=== PATIENT | female | born 2000 | race Caucasian/White ===

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

== ENCOUNTER 2018-07-03 07:09 | Emergency (ER) | payer OTHER ==
--- NOTE | 2018-07-03 07:38 | ED ---
Neck Pain - HPI Summary HPI Summary: This patient is a 17 year old F presenting to [facility] with a chief complaint of neck stiffness since the middle of the day yesterday. The patient rates the pain 5/10 in severity. Patient reports diffuse chest muscle pain, nausea, dry cough, sore throat, diaphoresis, fever, and headaches behind eyes. Patient denies being round anyone sick, ear aches, and abdominal pain. Her shots are up to date and her LNMP was 3-4 weeks ago. Patient has PMHx of chronic tachycardia , for which she takes 10 mg propranolol. She did not take any medications this morning and has not been out in the hatch recently. - History of Current Complaint Chief Complaint: EDGeneral Stated Complaint: GENERAL ILLNESS Time Seen by Provider: 07/03/18 07:31 Hx Obtained From: Patient Onset/Duration Of Injury/Symptoms: Days - Middle of the day yesterday Timing: Constant Onset/Duration: Sudden Onset Severity Initially: Moderate Severity Currently: Moderate Pain Intensity: 5 Pain Scale Used: 0-10 Numeric Location: Discrete At: - Sides of neck Character: Other: - Stiffness Associated Signs & Symptoms: Positive: Fever, Headache - around eyes - Allergies/Home Medications Allergies/Adverse Reactions: Allergies Allergy/AdvReac Type Severity Reaction Status Date / Time Penicillins Allergy Hives Verified 07/03/18 07:19 Home Medications: Home Medications Propranolol TAB* [Inderal TAB*] 10 mg PO DAILY 07/03/18 [History Confirmed 07/03] PMH/Surg Hx/FS Hx/Imm Hx Endocrine/Hematology History: Denies: Hx Diabetes Cardiovascular History: Denies: Hx Hypertension - Immunization History Date of Tetanus Vaccine: 2013 Date of Influenza Vaccine: 07/2017 Infectious Disease History: No Infectious Disease History: Denies: Traveled Outside the [place] in Last 30 Days - Family History Known Family History: Negative: Hypertension - Social History Occupation: Student Lives: Dormitory/Roommates Alcohol Use: Occasionally Hx Substance Use: No Substance Use Type: Reports: None Hx Tobacco Use: Yes Smoking Status (MU): Former Smoker Review of Systems Positive: Fever, Skin Diaphoresis Positive: Sore Throat, Other - Neck soreness. Negative: Ear Ache Positive: Chest Pain - Diffuse chest muscle pain Positive: Cough - Dry cough Positive: Nausea. Negative: Abdominal Pain Positive: Headache - Around eyes All Other Systems Reviewed And Are Negative: Yes Physical Exam - Summary Physical Exam Summary: GENERAL: Patient is a well-developed and nourished F who is lying comfortable in the stretcher. Patient is not in any acute respiratory distress. HEAD AND FACE: Normocephalic EYES: PERRLA, EOMI x 2. EARS: Hearing grossly intact. MOUTH: Oropharynx within normal limits. NECK: Supple, trachea is midline, no adenopathy, no JVD, no carotid bruit. CHEST: Symmetric, no tenderness at palpation LUNGS: Clear to auscultation bilaterally. No wheezing or crackles. CVS: Regular rate and rhythm, S1 and S2 present, no murmurs or gallops appreciated. ABDOMEN: Soft, non-tender. Bowel sounds are normal. No abdominal abnormal pulsations. EXTREMITIES: Full ROM in all major joints, no edema, no cyanosis or clubbing. NEURO: Alert and oriented x 3. No acute neurological deficits. Speech is normal and follows commands. SKIN: Dry and warm Triage Information Reviewed: Yes Vital Signs On Initial Exam: Initial Vitals Temp Pulse Resp BP Pulse Ox 100.9 F 110 19 112/77 100 07/03/18 07:14 07/03/18 07:14 07/03/18 07:14 07/03/18 07:14 07/03/18 07:14 Vital Signs Reviewed: Yes Procedures - Lumbar Puncture 11:00 Position: Sitting Aseptic Technique: Local Anesthesia Anesthesia Used: 2.0% Lido Spinal Needle Used: 20 Gauge Lumbar Puncture Note: %2.0 Lidocaine with epi Diagnostics - Vital Signs Vital Signs Temp Pulse Resp BP Pulse Ox 07/03/18 07:14 100.9 F 110 19 112/77 100 - Laboratory Result Diagrams: 07/03/18 08:05 07/03/18 08:04 Lab Statement: Any lab studies that have been ordered have been reviewed, and results considered in the medical decision making process. - Radiology Chest X-Ray Radiology Interpretation Completed By: Radiologist - :18. No active cardiopulmonary disease is noted. ED Physician has reviewed this imaging report. Re-Evaluation - Re-Evaluation 1 Re-Evaluation Time: 10:10 Comment: Informed the patient of the test results. Patient agrees to an LP. 2 Re-Evaluation Time: 13:07 Comment: After her LP, I instructed her to stay laying down. However, I just discovered that she got up before we instructed her to. Patient claims it had been 1 hour. Neck Course/Dx - Course Assessment/Plan: This patient is a 17 year old F presenting to [facility] with a chief complaint of neck stiffness since the middle of the day yesterday. Workup was unremarkable including the flu screen and rapid strep. Chest X-Ray showed no PNA, UA showed no UTI. No source for fever and she's having PLUMMER and neck pain. Therefore an LP was obtained. Patient was told to stay laying down for 2 hours after the LP. However, she got up after 1 hour AMA. CSF analysis showed no evidence of meningitis based off of cell count. Results discussed with patient who is much improved. Patient was eating a sandiwch brought in by her friend. She will be sent home with Motrin and Reglan for her headache. I discussed results with patient and she agrees with this plan. She is hemodynamically stable upon discharge. Strict return precautions given and she will otherwise follow up with her PCP. - Diagnoses Provider Diagnoses: Viral syndrome Discharge - Sign-Out/Discharge Documenting (check all that apply): Patient Departure - D/C - Discharge Plan Condition: Stable Disposition: HOME Prescriptions: Ibuprofen TAB* [Motrin TAB* 600 MG] 600 mg PO Q6H PRN #20 tab PRN Reason: Pain Metoclopramide TAB* [Reglan TAB*] 10 mg PO Q6H PRN #20 tab PRN Reason: Pain Patient Education Materials: Viral Syndrome (ED) Referrals: No Primary Care Phys,NOPCP [Primary Care Provider] - 3 Days (Because you do not have a primary care physician listed, we suggest that you follow up with the [facility] in 1-3 days. TO FIND US We are located on the 3rd floor of [facility]. Park in the front Visitor Lot and enter at the 1st Floor Entrance. From the [facility] 1st floor visitor lobby or 2nd floor main lobby, follow signs to the [facility]. TO SCHEDULE AN APPOINTMENT ) Additional Instructions: Follow up with your primary care physician in 1-3 days. RETURN TO THE EMERGENCY DEPARTMENT FOR CHANGING OR WORSENING SYMPTOMS. - Billing Disposition and Condition Condition: STABLE Disposition: Home - Attestation Statements Document Initiated by Scribe: Yes Documenting Scribe: Noé Healy Provider For Whom Scribe is Documenting (Include Credential): Jackie Sandoval MD Scribe Attestation: I, Noé Healy, scribed for Jackie Sandoval MD on 07/03/18 at 1833. Scribe Documentation Reviewed: Yes Provider Attestation: The documentation as recorded by the Noé white accurately reflects the service I personally performed and the decisions made by me, Jackie Sandoval MD
[2018-07-03] MEDS ORDERED: NS 0.9% 1000 ML*IV.FLUID IV ONE (07:59)
[2018-07-03] MEDS ORDERED: Ondansetron INJ* 2 MG/ML VIAL IV ONE (08:01)
[2018-07-03] MEDS ORDERED: Ketorolac INJ* 30 MG/ML 1 ML VIAL IV PUSH ONE (08:01)
[2018-07-03 08:28] LABS: ABS Basophils 0 10^3/ul (0-0.2); ABS Eosinophils 0 10^3/ul (0-0.6); ABS Lymphocytes 0.5 10^3/ul (1.0-4.8); ABS Monocytes 0.6 10^3/ul (0-0.8); ABS Neutrophils 6.8 10^3/ul (1.5-7.7); ABS Nucleated RBC 0 10^3/ul; Eosinophil % 0.2 % (0-6); Hematocrit 43 % (35-47); Hemoglobin 14.6 g/dl (12.0-16.0); Lymphocyte % 6.7 % (25-47); Mean Corpuscular HGB Conc 34 g/dl (31-36); Mean Corpuscular Hemoglobin 30 pg (27-31); Mean Corpuscular Volume 89 fL (80-97); Mean Platelet Volume 8.4 um3 (7.4-10.4); Nucleated Red Blood Cells % 0.1; Platelet Count 152 10^3/ul (150-450); Red Blood Count 4.82 10^6/ul (4.00-5.40); Red Cell Distribution Width 13 % (10.5-15)
[2018-07-03 08:37] LABS: INR 1.04 (0.77-1.02)
[2018-07-03 08:39] LABS: EGFR Non-African American 117.4 (>60)
--- NOTE | 2018-07-03 09:22 | RAD ---
Indication: Cough. 2 views of the chest including dual energy PA views and straight no mediastinal shift. Heart is of normal size and configuration. Lung goldsmith are clear. There is made with previous exam dated August 04, 2017. IMPRESSION: No active cardiopulmonary disease is noted.
[2018-07-03 09:55] LABS: Urine Appearance Clear; Urine Blood Negative (Negative); Urine Color Yellow; Urine Ketones 1+ (Negative); Urine Protein Negative (Negative); Urine Red Blood Cell Trace(0-2/hpf) (Absent); Urine Specific Gravity 1.011 (1.010-1.030); Urine Urobilinogen Negative (Negative); Urine White Blood Cell Trace(0-5/hpf) (Absent)
[2018-07-03] MEDS ORDERED: Acetaminophen TAB* 325 MG PO ONE (09:57)
[2018-07-03] MEDS ORDERED: Lidocaine 2% EPI 1:200000 MPF*10-20 ML VIAL ONE (10:56)
[2018-07-03] MEDS ORDERED: Morphine VIAL* 10 MG/ML 1 ML VIAL IV ONE ×2 (11:32→11:33)
[2018-07-03] MEDS ORDERED: Metoclopramide IV* 5 MG/ML 2 ML VIAL IV ONE (11:33)
[2018-07-03] MEDS ORDERED: NS 0.9% 1000 ML* 1,000 ML IV ONE (11:33)
[2018-07-03] MEDS ORDERED: diPHENhydraMINE IV* 50 MG/ML 1 ml VIAL (BENADRYL) IV ONE (11:34)
[2018-07-03 11:42] LABS: Body Fluid Source Cerebral Spinal
[2018-07-03 13:15] VITALS: BP 110/51
[2018-07-04 14:59] LABS: CSF VDRL Negative (Negative)
[2018-07-06 16:28] LABS: Lyme Disease Source CSF
== END 2018-07-03 13:18 | disposition home or self-care (01) ==
LOC: ED 07:09
DX: B34.9 Viral infection, unspecified (principal); R50.9 Fever, unspecified; R11.0 Nausea; R51 Headache; Z87.891 Personal history of nicotine dependence; J02.9 Acute pharyngitis, unspecified; R07.9 Chest pain, unspecified; Z88.0 Allergy status to penicillin
CPT/HCPCS: 36415; 62270; 71046; 80053; 81003; 81015; 82945; 83605; 84145; 84157; 84702; 85025; 85610; 85652; 85730; 86140; 86592; 86788; 86789; 87040; 87070; 87086; 87205; 87476; 87529; 87651; 87798; 87899; 89051; 99283; A9270-GY; J1200; J1885; J2270; J2405; J2765

== ENCOUNTER 2018-07-03 19:22 | Emergency (ER) | payer OTHER ==
--- NOTE | 2018-07-03 20:00 | ED ---
HPI Febrile Illness - HPI Summary HPI Summary: This patient is a 17 year old F presenting to [facility] with multiple complaints and was seen in the ED earlier today. 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 She was see earlier for fever, hurtado, myalgia, neck pain, and diaphoresis that began yesterday, LP was done to r/o meningitis. Pt states she returned home at 1430 and slept. When he awoke she states she had a fever of 103.3 current temp is 100.2. The patient rates the pain 5/10 in severity. Patient reports chills, back pain, sore throat, redness at LP site, and nausea. Patient denies v/d. Pt took 600mg of ibuprofen at 1930. She denies pain at LP site. - History of Current Complaint Chief Complaint: EDFever Time Seen by Provider: 07/03/18 19:48 Hx Obtained From: Patient Onset/Duration: Still Present Timing: Constant Temperature: 100.2 F Initial Severity: Severe Current Severity: Mild Pain Intensity: 5 Pain Scale Used: 0-10 Numeric Alleviating Factors: OTC Medicine Associated Signs and Symptoms: Negative - v/d, Other: - fever, hurtado, myalgia, neck pain, and diaphoresis - Allergy/Home Medications Allergies/Adverse Reactions: Allergies Allergy/AdvReac Type Severity Reaction Status Date / Time Penicillins Allergy Hives Verified 07/03/18 19:28 PMH/Surg Hx/FS Hx/Imm Hx Endocrine/Hematology History: Denies: Hx Diabetes Cardiovascular History: Denies: Hx Hypertension - Immunization History Date of Tetanus Vaccine: 2013 Date of Influenza Vaccine: 07/2017 Infectious Disease History: No Infectious Disease History: Denies: Traveled Outside the [place] in Last 30 Days - Family History Known Family History: Negative: Hypertension - Social History Occupation: Student Alcohol Use: Occasionally Hx Substance Use: No Substance Use Type: Reports: None Hx Tobacco Use: Yes Smoking Status (MU): Former Smoker Review of Systems Positive: Fever, Chills, Skin Diaphoresis Positive: Sore Throat Positive: Nausea. Negative: Vomiting, Diarrhea Positive: Myalgia, Other - neck pain and back pain Positive: Other - redness at LP site Positive: Headache All Other Systems Reviewed And Are Negative: Yes Physical Exam - Summary Physical Exam Summary: VITAL SIGNS: Reviewed. GENERAL: Patient is a well-developed and nourished female who is lying comfortable in the stretcher. Patient is not in any acute respiratory distress. HEAD AND FACE: No signs of trauma. No ecchymosis, hematomas or skull depressions. No sinus tenderness. EYES: PERRLA, EOMI x 2, No injected conjunctiva, no nystagmus. EARS: Hearing grossly intact. Ear canals and tympanic membranes are within normal limits. MOUTH: pharyngeal hyperemia without exudate NECK: Supple, trachea is midline, no JVD, no carotid bruit, no c-spine tenderness, neck with full ROM. Upper cervical adenopathy which is tender the left more than the right CHEST: Symmetric, no tenderness at palpation LUNGS: Clear to auscultation bilaterally. No wheezing or crackles. CVS: Regular rate and rhythm, S1 and S2 present, no murmurs or gallops appreciated. ABDOMEN: Soft, non-tender. No signs of distention. No rebound no guarding, and no masses palpated. Bowel sounds are normal. EXTREMITIES: FROM in all major joints, no edema, no cyanosis or clubbing. NEURO: Alert and oriented x 3. No acute neurological deficits. Speech is normal and follows commands. SKIN: LP site shows mild redness, it is not tender and shows no signs of infection Triage Information Reviewed: Yes Vital Signs On Initial Exam: Initial Vitals Temp Pulse Resp BP Pulse Ox 100.2 F 115 20 107/66 97 07/03/18 19:24 07/03/18 19:24 07/03/18 19:24 07/03/18 19:24 07/03/18 19:24 Vital Signs Reviewed: Yes Diagnostics - Vital Signs Vital Signs Temp Pulse Resp BP Pulse Ox 07/03/18 19:24 100.2 F 115 20 107/66 97 - Laboratory Result Diagrams: 07/03/18 20:53 07/03/18 20:53 Lab Statement: Any lab studies that have been ordered have been reviewed, and results considered in the medical decision making process. Course/Dx - Course Assessment/Plan: This patient is a 17 year old F presenting to [facility] with multiple complaints and was seen in the ED earlier today. 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 She was see earlier for fever, hurtado, myalgia, neck pain, and diaphoresis that began yesterday, LP was done to r/o meningitis. Pt states she returned home at 1430 and slept. When he awoke she states she had a fever of 103.3 current temp is 100.2. The patient rates the pain 5/10 in severity. Patient reports chills, back pain, sore throat , redness at LP site, and nausea. Patient denies v/d. Pt took 600mg of ibuprofen at 1930. She denies pain at LP site. I reviewed all test results from the patients visit earlier today. Test results with no significant abnormalities, patient was negative for mono. In the ED course the patient was given IV fluids, toradol, and Tylenol. Dx viral syndrome. Patient will be discharged and follow up from [facility]. The patient is agreeable with this plan. - Diagnoses Provider Diagnoses: Viral syndrome Discharge - Sign-Out/Discharge Documenting (check all that apply): Patient Departure - Discharge Plan Condition: Stable Disposition: HOME Prescriptions: Ibuprofen TAB* [Motrin TAB* 800 MG] 800 mg PO Q6H PRN #30 tab PRN Reason: Fever/Pain Patient Education Materials: Viral Syndrome (ED) Forms: *School Release Referrals: [facility] - Quinton LYLE [Medical Doctor] - Additional Instructions: RETURN TO THE EMERGENCY DEPARTMENT FOR CHANGING OR WORSENING SYMPTOMS. FOLLOW UP WITH PCP IN 1-2 DAYS. - Attestation Statements Document Initiated by Scribe: Yes Documenting Scribe: Livan Benitez Provider For Whom Jesika is Documenting (Include Credential): Onofre Joy MD Scribe Attestation: Livan Perkins, scribed for Onofre Joy MD on 07/03/18 at 2156.
[2018-07-03] MEDS ORDERED: NS 0.9% 1000 ML*IV.FLUID IV ONE (20:06)
[2018-07-03] MEDS ORDERED: Ketorolac INJ* 30 MG/ML 1 ML VIAL IV PUSH ONE (20:07)
[2018-07-03] MEDS ORDERED: Acetaminophen TAB* 325 MG PO ONE (20:07)
[2018-07-03 21:03] LABS: Hematocrit 38 % (35-47); Hemoglobin 13.2 g/dl (12.0-16.0); Mean Corpuscular HGB Conc 34 g/dl (31-36); Mean Corpuscular Hemoglobin 31 pg (27-31); Mean Corpuscular Volume 89 fL (80-97); Platelet Count 132 10^3/ul (150-450); Red Blood Count 4.32 10^6/ul (4.00-5.40); Red Cell Distribution Width 13 % (10.5-15); White Blood Count 7.9 10^3/ul (3.5-10.8)
[2018-07-03 21:20] LABS: EGFR Non-African American 119.5 (>60)
[2018-07-03 21:58] LABS: Monocytes % 7 % (0-7)
[2018-07-03 21:59] LABS: ABS Basophils 0.1 10^3/ul (0-0.2); ABS Neutrophils 5.6 10^3/ul (1.5-7.7)
[2018-07-03] MEDS ORDERED: Metoclopramide IV* 5 MG/ML 2 ML VIAL IV SLOW PU ONE (22:20)
[2018-07-03] MEDS ORDERED: Metoclopramide TAB* 10 MG PO ONE (22:20)
[2018-07-03] MEDS ORDERED: Metoclopramide IV* 5 MG/ML 2 ML VIAL ONE (22:21)
[2018-07-03] MEDS ORDERED: Metoclopramide TAB* 10 MG ONE (22:22)
[2018-07-03 23:27] VITALS: BP 98/47
== END 2018-07-03 23:30 | disposition home or self-care (01) ==
LOC: ED 19:22
DX: B34.9 Viral infection, unspecified (principal); Z88.0 Allergy status to penicillin; Z87.891 Personal history of nicotine dependence
CPT/HCPCS: 36415; 80053; 83605; 85025; 85060; 86140; 86308; 86664; 86665; 87040; 96374; 96375; 99284; A9270-GY; J1885; J2765

== ENCOUNTER 2018-07-07 13:40 | Emergency (ER) | payer OTHER ==
[2018-07-07] MEDS ORDERED: diPHENhydraMINE IV* 50 MG/ML 1 ml VIAL (BENADRYL) IV ONE (14:35)
[2018-07-07] MEDS ORDERED: Metoclopramide IV* 5 MG/ML 2 ML VIAL IV ONE (14:35)
[2018-07-07] MEDS ORDERED: Ketorolac INJ* 30 MG/ML 1 ML VIAL IV PUSH ONE (14:35)
[2018-07-07] MEDS ORDERED: NS 0.9% 1000 ML* 2,000 ML IV ONE (16:07)
--- NOTE | 2018-07-07 16:18 | ED ---
Headache - HPI Summary HPI Summary: 17 year old F presenting to [facility] complains of headache described as pulsing and located in the back of her head since four days ago. The patient rates the pain 7/10 in severity. Symptoms aggravated by bright lights. Symptoms alleviated by lying down. Patient reports nausea and decreased appetite. She has treated the pain with 800 mg ibuprofen and Zofran with relief. Patient recently seen in ED four days ago during which she had spinal tap done for viral symptoms. - History Of Current Complaint Chief Complaint: EDHeadache Stated Complaint: HEADACHE/DIZZY AFTER LP Time Seen by Provider: 07/07/18 15:56 Hx Obtained From: Patient Onset/Duration: Started hours ago - 4, Still Present Currently Pain Is: Current Pain Scale(0-10)= - 7 Character: Throbbing Location of Headache: Other: - back of head Aggravating Factor: Bright Lights Allevating Factors: Other (Noted In Comments) - lying down Associated Signs And Symptoms: Nausea, Other (Noted In Comments) - decreased appetite - Allergies/Home Medications Allergies/Adverse Reactions: Allergies Allergy/AdvReac Type Severity Reaction Status Date / Time Penicillins Allergy Hives Verified 07/03/18 19:28 PMH/Surg Hx/FS Hx/Imm Hx Previously Healthy: Yes Endocrine/Hematology History: Denies: Hx Diabetes Cardiovascular History: Denies: Hx Hypertension - Surgical History Surgery Procedure, Year, and Place: none - Immunization History Date of Tetanus Vaccine: 2013 Date of Influenza Vaccine: 07/2017 Infectious Disease History: No Infectious Disease History: Denies: Traveled Outside the [place] in Last 30 Days - Family History Known Family History: Negative: Hypertension - Social History Alcohol Use: Occasionally Hx Substance Use: No Substance Use Type: Reports: None Hx Tobacco Use: Yes Smoking Status (MU): Former Smoker Review of Systems Positive: Nausea, Other - decreased appetite Positive: Headache All Other Systems Reviewed And Are Negative: Yes Physical Exam - Summary Physical Exam Summary: Appearance: The patient is well-nourished in no acute distress and in no acute pain. Skin: The skin is warm and dry and skin color reflects adequate perfusion. HEENT: The head is normocephalic and atraumatic. The pupils are equal and reactive. The conjunctivae are clear and without drainage. Nares are patent and without drainage. Mouth reveals moist mucous membranes and the throat is without erythema and exudate. The external ears are intact. The ear canals are patent and without drainage. The tympanic membranes are intact. Neck: The neck is supple with full range of motion and non-tender. There are no carotid bruits. There is no neck vein distension. Respiratory: Chest is non-tender. Lungs are clear to auscultation and breath sounds are symmetrical and equal. Cardiovascular: Heart is regular rate and rhythm. There is no murmur or rub auscultated. There is no peripheral edema and pulses are symmetrical and equal. Abdomen: The abdomen is soft and non-tender. There are normal bowel sounds heard in all four quadrants and there is no organomegaly palpated. Musculoskeletal: There is no back tenderness noted. Extremities are non-tender with full range of motion. There is good capillary refill. There is no peripheral edema or calf tenderness elicited. Neurological: Patient is alert and oriented to person, place and time. The patient has symmetrical motor strength in all four extremities. Cranial nerves are grossly intact. Deep tendon reflexes are symmetrical and equal in all four extremities. Psychiatric: The patient has an appropriate affect and does not exhibit any anxiety or depression. Triage Information Reviewed: Yes Vital Signs On Initial Exam: Initial Vitals Temp Pulse Resp BP Pulse Ox 97.9 F 64 14 119/67 98 07/07/18 13:46 07/07/18 13:46 07/07/18 13:46 07/07/18 13:46 07/07/18 13:46 Vital Signs Reviewed: Yes Diagnostics - Vital Signs Vital Signs Temp Pulse Resp BP Pulse Ox 07/07/18 13:46 97.9 F 64 14 119/67 98 - Laboratory Lab Statement: Any lab studies that have been ordered have been reviewed, and results considered in the medical decision making process. Headache Course/Dx - Course Course Of Treatment: Ms. Ayers presented with what sounded like a post-LP headache. She was given IV fluids and caffeine which did not help. She was then given Fioricet after consultation with Dr. Dunlap. This also did not help and Dr. Dunlap was contacted for a blood patch. - Diagnoses Provider Diagnoses: Post lumbar puncture headache - Physician Notifications Discussed Care Of Patient With: Yenifer Dunlap Time Discussed With Above Provider: 19:06 Instructed by Provider To: Other - Dr. Dunlap, anesthesiology, will come see patient to do blood patch. Discharge - Sign-Out/Discharge Documenting (check all that apply): Patient Departure - Discharge - Discharge Plan Condition: Stable Disposition: HOME Patient Education Materials: Acute Headache (ED) Referrals: No Primary Care Phys,NOPCP [Primary Care Provider] - [facility] [Outside] - 2 Days Additional Instructions: Follow up with [facility] in 2 days. RETURN TO THE EMERGENCY DEPARTMENT FOR NEW OR WORSENING SYMPTOMS. - Billing Disposition and Condition Condition: STABLE Disposition: Home - Attestation Statements Document Initiated by Scribe: Yes Documenting Scribe: Divine Solis Provider For Whom Jesika is Documenting (Include Credential): Kwame Clements MD Scribe Attestation: Divine Perkins, scribed for Kwame Clements MD on 07/08/18 at 2118. Scribe Documentation Reviewed: Yes Provider Attestation: The documentation as recorded by the Divine white accurately reflects the service I personally performed and the decisions made by me, Kwame Clements MD
[2018-07-07] MEDS ORDERED: Butalb/Acetamin/Caff TAB* 1 TAB PO ONE (17:46)
[2018-07-07 21:24] VITALS: BP 128/78
--- NOTE | 2018-07-08 00:26 | PM ---
EMERGENCY ROOM PROCEDURE NOTE: DATE OF SERVICE: 07/07/18 TIME: 2043. HISTORY: In brief, the patient is a very pleasant 17-year-old girl, who presented to the emergency room today after having undergone a lumbar puncture diagnostically on 07/03/18 for headache, fever, chills to rule out meningitis. Since that time, the patient has been complaining of a severe 7-10/10 headache that is positional and worsens with sitting and then again with standing. The patient has tried conservative management including IV fluids, caffeine, Fioricet as well as migraine headaches per the ED with no relief of her headache symptoms. At this point, she has failed conservative management and would like to try a more aggressive therapy such as epidural blood patch. I did discuss this with the attending physician, Dr. Clements, as well as the patient herself. The risks of the procedure including but not limited to bleeding, bruising, infection, nerve injury as well as failure to improve her headache in addition to worsening headache were all discussed with the patient. She verbalized understanding and elected to proceed. She denied all constitutional red flags including fever, chills, infection, history of coagulopathy, use of anticoagulants, and space-occupying intracranial lesions. PROCEDURE: The patient was placed in the sitting position. Her back was prepped and draped in the usual sterile fashion. 1% lidocaine plain was used to anesthetize the skin and subcutaneous tissues. Subsequently, an 18-gauge Tuohy needle was used to access the epidural space with loss of resistance to saline with saline in a glass syringe. After accessing the epidural space, IV in the left antecubital region was placed sterilely by the emergency room RNTrang. 30 cc of autologous venous blood was withdrawn sterilely from the left antecubital IV site and subsequently injected into the epidural space. A total of 25 cc was injected into the epidural space before the patient started to feel increasing pressure in her low back. Subsequently, she did perceive some improvement in her headache symptoms. The needle was then withdrawn and her back was dressed with Tegaderm and 2x2s. She was subsequently instructed to avoid tub bath, hot tubs, bathing, swimming for the next 2 days. She was also instructed by myself as well as the emergency room staff to contact us immediately should she experience any recurrent fever, chills, worsening backache, radicular pain, focal neurological deficits such as weakness or numbness as well as purulent drainage or copious bleeding from her epidural site. She did verbalize understanding of all of this. She will subsequently be discharged by the emergency room as appropriate. The patient has allergies to PENICILLIN only. Her preoperative vital signs were pulse 64, respiratory rate 14, oxygen saturation 98%, blood pressure 118/67. 7/10 pain. Postprocedure vitals were blood pressure 129/72, pulse 66, oxygen saturation 99%. The patient is 5 feet 10 inches and 135 pounds. She tolerated the entire procedure well with no focal neurological deficits or paresthesias. Thank you for allowing me to participate in the care of your patient, please do no hesitate to call with further questions. [id number]/[facility] #: [id number] ROBERT
== END 2018-07-07 21:23 | disposition home or self-care (01) ==
LOC: ED 13:40
CPT/HCPCS: A9270-GY; J1200; J1885; J2765

== ENCOUNTER 2019-06-28 11:02 | Emergency (ER) | payer OTHER ==
[2019-06-28 11:19] VITALS: BP 104/61
--- NOTE | 2019-06-28 11:30 | UC ---
UC General HPI - HPI Summary HPI Summary: 18 yo female c/o urinary freq / urg / dysuria since yesterday. No fever / chills. no back pain. No GI sx. - History of Current Complaint Chief Complaint: UCGU Stated Complaint: BURNING URINATION Time Seen by Provider: 06/28/19 11:25 Hx Obtained From: Patient Hx Last Menstrual Period: iud Pain Intensity: 9 - Allergy/Home Medications Allergies/Adverse Reactions: Allergies Allergy/AdvReac Type Severity Reaction Status Date / Time Penicillins Allergy Hives Verified 06/28/19 11:19 Home Medications: Home Medications NK [No Home Medications Reported] 06/28/19 [History Confirmed 06/28/19] PMH/Surg Hx/FS Hx/Imm Hx Previously Healthy: Yes - Surgical History Surgery Procedure, Year, and Place: none - Family History Known Family History: Negative: Hypertension - Social History Alcohol Use: Occasionally Substance Use Type: None Smoking Status (MU): Former Smoker Review of Systems All Other Systems Reviewed And Are Negative: Yes Constitutional: Positive: Negative Skin: Positive: Negative Eyes: Positive: Negative ENT: Positive: Negative Respiratory: Positive: Negative Cardiovascular: Positive: Negative Gastrointestinal: Positive: Negative Genitourinary: Positive: Other - see hpi Motor: Positive: Negative Neurovascular: Positive: Negative Musculoskeletal: Positive: Negative Neurological: Positive: Negative Psychological: Positive: Negative Is Patient Immunocompromised?: No Physical Exam Triage Information Reviewed: Yes Appearance: Well-Appearing, Well-Nourished Vital Signs: Initial Vital Signs Temp 98.8 F 06/28/19 11:17 Pulse 80 06/28/19 11:17 Resp 16 06/28/19 11:17 BP 104/61 06/28/19 11:17 Pulse Ox 100 06/28/19 11:17 Vital Signs Reviewed: Yes Eye Exam: Normal ENT Exam: Normal Neck exam: Normal Respiratory Exam: Normal Cardiovascular Exam: Normal Abdominal Exam: Other - no cvat Abdomen Description: Positive: Nontender Musculoskeletal Exam: Normal Neurological Exam: Normal Psychological Exam: Normal Skin Exam: Normal Course/Dx - Course Course Of Treatment: Reviewed urine dip results with pt. Reviewed coa / tx plan. Questions as posed answered to the best of my ability. - Diagnoses Provider Diagnosis: UTI (urinary tract infection) Discharge ED - Sign-Out/Discharge Documenting (check all that apply): Patient Departure All imaging exams completed and their final reports reviewed: No Studies - Discharge Plan Condition: Stable Disposition: HOME Patient Education Materials: Urinary Tract Infection in Women (ED) Referrals: No Primary Care Phys,NOPCP [Primary Care Provider] - Additional Instructions: Follow up with a primary care physician, per routine. Please seek medical attention for worse or new problems. Hydrate. - Billing Disposition and Condition Condition: STABLE Disposition: Home
[2019-06-28] MEDS ORDERED: Ciprofloxacin TAB* 500 MG PO ONE (11:47)
[2019-06-28] MEDS ORDERED: Phenazopyridine TAB* 100 MG PO ONE (11:48)
== END 2019-06-28 12:10 | disposition home or self-care (01) ==
LOC: UCEAST 11:02
DX: N39.0 Urinary tract infection, site not specified (principal); Z88.0 Allergy status to penicillin; Z87.891 Personal history of nicotine dependence
CPT/HCPCS: 81003; 84702; 87077; 87086; 87186; 99212; A9270-GY; G0463